=== PATIENT | female | born 1975 | race Caucasian/White ===

== ENCOUNTER 2017-12-13 06:39 | Emergency (ER) | payer OTHER ==
[~2017-12-13] VITALS: Ht 165.1 cm; Wt 78.0 kg
[2017-12-13] MEDS ORDERED: BUDESONIDE0.5 MG/2 M IH (12:36)
[2017-12-13] MEDS ORDERED: MUCINEX DM ER1 EAC1 PO (12:36)
[2017-12-13] MEDS ORDERED: PROMETH-CODEIN 65 ML PO (12:36)
[2017-12-13] MEDS ORDERED: IPRAT-ALBUT 0.5-3 ML IH (12:36)
[2017-12-13] MEDS ORDERED: MEDROLPACK PO (12:36)
[2017-12-13] MEDS ORDERED: LEVAQUIN750 MG PO (12:36)
== END 2017-12-13 13:16 | disposition home or self-care (01) ==
LOC: ER 06:39
DX: J06.9 Acute upper respiratory infection, unspecified (principal)

== ENCOUNTER 2017-12-21 22:43 | Inpatient (IN) | payer OTHER ==
[~2017-12-21] VITALS: Ht 167.6 cm; Wt 79.8 kg
[~2017-12-21 22:43] MED LIST: BUDESONIDE0.5 MG/2 M IH; IPRAT-ALBUT 0.5-3 ML IH; LEVAQUIN750 MG PO; MEDROLPACK PO; MUCINEX DM ER1 EAC1 PO; PROMETH-CODEIN 65 ML PO
== END 2018-01-03 14:34 | disposition home or self-care (01) | DRG 975 ==
LOC: ER 22:43 → SEC-K 12-22 11:22 → MEDJ 12-22 13:39
PROC: BW24ZZZ Computerized Tomography (CT Scan) of Chest and Abdomen (ICD-10-PCS; principal; 2017-12-22)
PROC: 3E0F7GC Introduction of Other Therapeutic Substance into Respiratory Tract, Via Natural or Artificial Opening (ICD-10-PCS; 2017-12-22)
PROC: CB121ZZ Planar Nuclear Medicine Imaging of Lungs and Bronchi using Technetium 99m (Tc-99m) (ICD-10-PCS; 2017-12-22)
PROC: 8E0ZXY6 Isolation (ICD-10-PCS; 2017-12-23)
PROC: B54DZZZ Ultrasonography of Bilateral Lower Extremity Veins (ICD-10-PCS; 2017-12-24)
PROC: 4A033R1 Measurement of Arterial Saturation, Peripheral, Percutaneous Approach (ICD-10-PCS; 2017-12-30)
DX: B20 Human immunodeficiency virus [HIV] disease (principal); B59 Pneumocystosis; J45.41 Moderate persistent asthma with (acute) exacerbation; R09.02 Hypoxemia; R63.4 Abnormal weight loss; M54.5 Low back pain

== ENCOUNTER 2018-02-18 10:58 | Emergency (ER) | payer OTHER ==
[~2018-02-18] VITALS: Ht 167.6 cm; Wt 70.3 kg
== END 2018-02-18 18:34 | disposition home or self-care (01) ==
LOC: ER 10:58
DX: G25.2 Other specified forms of tremor (principal); R53.1 Weakness; B20 Human immunodeficiency virus [HIV] disease

== ENCOUNTER 2022-04-09 08:27 | Outpatient (CLI) | payer OTHER | END 2022-04-09 09:00 | disposition home or self-care (01) | LOC: TOM 08:27 | DX: C20 Malignant neoplasm of rectum (principal) ==